=== PATIENT | female | born 1980 | race Caucasian/White ===

== ENCOUNTER 2017-04-06 18:42 | Emergency (ER) | payer OTHER ==
[~2017-04-06] VITALS: Ht 175.3 cm; Wt 81.6 kg
--- NOTE | 2017-04-06 19:38 | ED GI/GU/ABDOMINAL COMPLAINT ---
History of Present Illness General Chief Complaint: Abdominal Pain/Flank Pain Stated Complaint: RLQ PAIN RADIATING INTO BACK Source: patient Exam Limitations: no limitations Vital Signs & Intake/Output Vital Signs & Intake/Output Vital Signs Date Time Temp Pulse Resp B/P B/P Pulse O2 O2 Flow FiO2 Mean Ox Delivery Rate 04/06 2111 97.8 74 18 135/85 98 Room Air 04/06 2057 100 Room Air ED Intake and Output 04/07 0000 04/06 1200 Intake Total Output Total Balance Patient 180 lb Weight Weight Estimated Measurement Method Allergies Coded Allergies: No Known Allergies (04/06/17) Reconcile Medications Dicyclomine Hydrochloride (Bentyl) 10 MG CAPSULE 1 CAP PO TID PRN abdominal spasms Naproxen (Naprosyn) 500 MG TABLET 1 TAB PO BID PRN pain Triage Note: PT TO ED C/O RLQ SINCE THIS AM. C/O DIARRHEA, DENIES V/D. C/O PRESSURE WITH URINATING. DESCRIBES THROBBING AND CONSTANT. Triage Nurses Notes Reviewed? yes ? N Is pt currently ? No HPI: This patient is a 36 year old female with a history of asthma who presented for evaluation of right lower quadrant abdominal pain since 9:00AM today. The patient reported that she tried taking Advil without relief. She then took IBuprofen which dulled the pain. Pain as not completely subsided since onset. The pain also radiates to her right lower back. NO provoking factors. Pain is currently an 8 out of 10. At its worst the pain was a 10 out of 10.The patient reported several episodes of diarrhea over the last few days. SHe reported pressure with urination, but no burning, frequency, urgency, or blood in the urine. The patient denied any nausea, vomiting, constipation, fevers, chills, decreased appetite. (MARYLOU ALEXANDER PA-C) Past History Travel History Traveled to [place] past 21 day No Medical History Any Pertinent Medical History? 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 No (MARYLOU ALEXANDER PA-C) Review of Systems Review of Systems Constitutional: Reports: no symptoms. EENTM: Reports: no symptoms. Respiratory: Reports: no symptoms. Cardiovascular: Reports: no symptoms. GI: Reports: see HPI. Genitourinary: Reports: see HPI. Musculoskeletal: Reports: see HPI. Skin: Reports: no symptoms. Neurological/Psychological: Reports: no symptoms. All Other Systems: Reviewed and Negative (MARYLOU ALEXANDER PA-C) Physical Exam Physical Exam Gastrointestinal: normal bowel sounds, soft, no organomegaly, nondistended. no mcburnys point tenderness. no rebound or guarding. Negative rovsing sign. Negative psoas sign. Negative Camarena's sign. NO masses or hernia appreciated Comments: General: Well-developed, well-nourished person in no acite distress HEENT: Head normocephalic, moist mucous membranes Neck: Supple with no lymphadenopathy Back: Normal gait. NO CVA tenderness. No midline tenderness Cardiovascular: Regular rate and rhythm with no murmurs, rubs or gallops Respiratory: Lungs clear to auscultation bilaterally with no wheezes, rales, or rhonchi Neuro: A&Ox3. Cranial nerves grossly intact Psych: Mood and affect normal Core Measures ACS in differential dx? No Severe Sepsis Present: No Septic Shock Present: No (MARYLOU ALEXANDER PA-C) Progress Differential Diagnosis: AAA, AMI, appendicitis, biliary colic, bowel obstruction , colon cancer, cholecystitis, diverticulitis, ectopic , endometritis, gastritis, hepatitis, ischemic bowel, inflamm bowel dis, intrauterine , kidney stone, ovarian cyst, ovarian torsion, pancreatitis, PID/cervicitis, PUD/ GERD, perforated viscous, threatened AB, UTI/pyelo Plan of Care: Orders Procedure Date/time Status LIPASE 04/06 1903 Complete HIGH SENSITIVITY CRP 04/06 1903 Complete DIRECT BILIRUBIN 04/06 1903 Complete COMPREHENSIVE METABOLIC PANEL 04/06 1903 Complete CBC WITHOUT DIFFERENTIAL 04/06 1903 Complete AMYLASE 04/06 1903 Complete URINE 04/06 184 Complete URINALYSIS 04/06 1844 Complete Current Medications Sig/[place] Start time Last Medication Dose Stop Time Status Admin Morphine Sulfate 2 MG ONCE ONE 04/06 1945 CAN (Morphine) 04/06 1946 Laboratory Tests 04/06/171950: Urine Color YEL, Urine Clarity CLEAR, Urine pH 6.0, Ur Specific [place] 1.025, Urine Protein NEG, Urine Ketones NEG, Urine Nitrite NEG, Urine Bilirubin NEG, Urine Urobilinogen 0.2, Ur Leukocyte Esterase NEG, Ur Microscopic EXAM NOT REQUIRED, Urine Hemoglobin NEG, Urine Glucose NEG, Urine Test NEGATIVE 04/06/171941: Anion Gap 10, Estimated GFR > 60, BUN/Creatinine Ratio 17.8, Glucose 108 H, Calcium 8.5, Total Bilirubin 0.4, Direct Bilirubin 0.3, AST 33, ALT 42, Alkaline Phosphatase 53, C-React Prot High Sens 2.5, Total Protein 6.9, Albumin 3.6, Globulin 3.3, Albumin/Globulin Ratio 1.1, Amylase 41, Lipase 67, CBC w Diff NO MAN DIFF REQ, RBC 4.17 L, MCV 84.1, MCH 28.4, RDW 13.9, MPV 9.4, Gran % 49.4, Lymphocytes % 36.1, Monocytes % 7.4, Eosinophils % 6.6 H, Basophils % 0.5, Absolute Granulocytes 3.5, Absolute Lymphocytes 2.6, Absolute Monocytes 0.5, Absolute Eosinophils 0.5, Absolute Basophils 0, PUBS MCHC 33.8 Initial ED EKG: none Comments: 04/06/2017 8:48:11 PM: I was at the patient's bedside for re-evaluation. She reported that her pain might be better but she isn't sure. CRP not elevated. No increase in WBC count. No RBC or WBC in the urine. Explained to patient likely viral syndrome. Deferred CT scan of abdomen at this time due to unremarkable blood work. Patient is afebrile. (MARYLOU ALEXANDER PA-C) Departure Departure Disposition: HOME OR SELF CARE Condition: Stable Clinical Impression Primary Impression: Viral syndrome Referrals: UNKNOWN (PCP/Family) Additional Instructions: take medication as prescribed. take medication for pain as directed. return for any worsening symptoms or concerns. Departure Forms: Customer Survey General Discharge Information Prescriptions: Current Visit Scripts Naproxen (Naprosyn) 1 TAB PO BID PRN pain #20 TAB Dicyclomine Hydrochloride (Bentyl) 1 CAP PO TID PRN abdominal spasms #12 CAP (MARYLOU ALEXANDER PA-C) PA/CARD RUNNER Co-Sign Statement Statement: ED Attending supervision documentation- [] I saw and evaluated the patient. I have also reviewed all the pertinent lab results and diagnostic results. I agree with the findings and the plan of care as documented in the PA's/CARD RUNNER's documentation. [X] I have reviewed the ED Record and agree with the PA's/CARD RUNNER's documentation. [] Additions or exceptions (if any) to the PAs/CARD RUNNER's note and plan are summarized below: [] (KYRA BANSAL,YUE)
[2017-04-06 19:50] LABS: ABSOLUTE BASOPHIL COUNT 0 /CUMM (0.0-0.2); ABSOLUTE EOSINOPHIL COUNT 0.5 /CUMM (0.0-0.7); ABSOLUTE GRANULOCYTE CT 3.5 /CUMM (1.4-6.5); ABSOLUTE LYMPH COUNT 2.6 /CUMM (1.2-3.4); ABSOLUTE MONOCYTE COUNT 0.5 /CUMM (0.10-0.60); BASOPHIL % 0.5 % (0.0-2.0); EOSINOPHIL % 6.6 % (0-5); GRANULOCYTE % 49.4 % (42.2-75.2); MEAN CORPUSCULAR HGB 28.4 PG (27.0-31.0); MEAN CORPUSCULAR HGB CONC 33.8 G/DL (33.0-37.0); MEAN CORPUSCULAR VOLUME 84.1 FL (81.0-99.0); MEAN PLATELET VOLUME 9.4 FL (7.4-10.4); PLATELET COUNT 212 /CUMM (130-400); RBC DISTRIBUTION WIDTH 13.9 % (11.5-14.5); RED BLOOD CELL CT 4.17 /CUMM (4.20-5.40); WHITE BLOOD CELL COUNT 7.1 /CUMM (4.8-10.8)
[2017-04-06] MEDS ORDERED: NAPROSYN500 M1 PO (21:08)
[2017-04-06] MEDS ORDERED: BENTYL10 M1 PO (21:08)
[2017-04-06 21:11] VITALS: BP 135/85
== END 2017-04-06 21:18 ==
LOC: ERH 18:42
PROVIDERS: Physician Assistant
DX: B34.9 Viral infection, unspecified (principal)
CPT/HCPCS: 81003; 81025; 96365; J0131